=== PATIENT | female | born 1940 | race Caucasian/White ===

== ENCOUNTER → 2017-12-05 | Outpatient (CLI) | payer BC ==
[~2017-12-05] MED LIST: ASPEC325 PO; ATOR10TA82 PO; HYDC25 PO; MULT-190 PO
[2017-12-05 14:30] LABS: ALBUMIN 3.5 gm/dl (3.4-5.0); ALT/SGPT 32 U/L (12-78); AST/SGOT 31 U/L (15-37); BLOOD UREA NITROGEN 11 mg/dl (7-18); CALCIUM 8.5 mg/dl (8.5-10.1); CARBON DIOXIDE 32 mmol/L (21-32); CREATININE 0.81 mg/dl (0.60-1.20); GLUCOSE 95 mg/dl (70-99); POTASSIUM 3.2 mmol/L (3.5-5.1); SODIUM 133 mmol/L (136-145)
[2017-12-05 14:41] LABS: ALKALINE PHOSPHATASE 73 U/L (45-117); CHOLESTEROL 165 mg/dl (0-200); LDL CHOLESTEROL CALCULATED 76 mg/dl
== END | disposition home or self-care (01) ==
LOC: C.LABBC 09:43
PROVIDERS: ATTEND Physician Assistant Medical
DX: E78.5 Hyperlipidemia, unspecified (principal)

== ENCOUNTER → 2018-03-13 | Outpatient (CLI) | payer BC ==
[2018-03-13 13:32] LABS: BLOOD UREA NITROGEN 13 mg/dl (7-18); CARBON DIOXIDE 31 mmol/L (21-32); CREATININE 0.89 mg/dl (0.60-1.20); GLUCOSE 101 mg/dl (70-99); POTASSIUM 4.2 mmol/L (3.5-5.1); SODIUM 139 mmol/L (136-145)
== END | disposition home or self-care (01) ==
LOC: C.LABBC 09:23
PROVIDERS: ATTEND Family Medicine Adult Medicine
DX: E87.6 Hypokalemia (principal)